=== PATIENT | male | born 1990 | race Hispanic/Latino ===

== ENCOUNTER 2021-05-06 10:37 | Emergency (ER) | payer OTHER ==
[~2021-05-06] VITALS: Ht 185.4 cm; Wt 78.9 kg
[2021-05-06 11:38] VITALS: BP 123/75
== END 2021-05-06 11:39 | disposition home or self-care (01) ==
LOC: EDH 10:37 → EEVIPCON 10:37 → EDH 11:39
DX: S60.222A Contusion of left hand, initial encounter (principal); S50.12XA Contusion of left forearm, initial encounter; Y08.89XA Assault by other specified means, initial encounter; Y93.89 Activity, other specified; Y92.89 Other specified places as the place of occurrence of the external cause; Y99.8 Other external cause status
CPT/HCPCS: 73090; 73130